=== PATIENT | female | born 1980 | race Hispanic/Latino ===

== ENCOUNTER 2018-07-26 07:03 | Day surgery (SDC) | payer MEDICAID ==
[2018-07-23 11:01] VITALS: BP 124/64
[~2018-07-26] VITALS: Ht 157.5 cm; Wt 72.1 kg
[2018-07-26] VITALS (16 sets, daily range): BP systolic 97–137; BP diastolic 54–72
[~2018-07-26 07:03] MED LIST: CEFOXITIN SODIUM 2 GM VIAL IVP SCH
[2018-07-26] MEDS ORDERED: NEOMY SULF/POLYMYXIN B SULFATE 1 ML AMPUL IR ONE (07:06)
[2018-07-26] MEDS ORDERED: BUPIVACAINE/EPI/PF 0.5% 30ML VIAL IJ ONE (07:06)
[2018-07-26] MEDS ORDERED: LIDOCAINE HCL MDV 0.5% 50ML VIAL IJ ONE (07:06)
[2018-07-26] MEDS ORDERED: LACTATED RINGERS 1000ML 1,000 ML IV ONE (07:48)
[2018-07-26] MEDS ORDERED: SCOPOLAMINE HYDROBROMIDE 1 EACH ADH..PATCH TD ONE (08:55)
[2018-07-26] MEDS ORDERED: METOCLOPRAMIDE 10 MG/2 ML VIAL ONE (08:59)
[2018-07-26] MEDS ORDERED: ONDANSETRON HCL 4 MG/2 ML VIAL ONE (08:59)
[2018-07-26] MEDS ORDERED: LIDOCAINE PF 2% 5ML ABBOJECT ONE (08:59)
[2018-07-26] MEDS ORDERED: MIDAZOLAM HCL 1 MG/ML 2ML VIAL ONE (08:59)
[2018-07-26] MEDS ORDERED: PROPOFOL 10 MG/ML 20ML VIAL IV ONE (08:59)
[2018-07-26] MEDS ORDERED: FENTANYL CITRATE PF 50 MCG/1 ML 2ML VIAL ONE (09:00)
[2018-07-26] MEDS ORDERED: GLYCOPYRROLATE 1 MG/5 ML SYRINGE ONE (09:00)
[2018-07-26] MEDS ORDERED: NEOSTIGMINE 5MG/5ML SYR IV ONE (09:00)
[2018-07-26] MEDS ORDERED: ROCURONIUM 10MG/1ML SYR 10 MG/ML ML ONE (09:00)
[2018-07-26] MEDS ORDERED: LIDOCAINE HCL 4% LTA SOL 4 ML VIAL ONE (09:13)
[2018-07-26] MEDS ORDERED: DEXAMETHASONE SOD PHOSPHATE 4 MG/ML 1ML VIAL ONE (09:13)
[2018-07-26] MEDS ORDERED: MEPERIDINE-PF 25 MG/ML SYG ONE (10:11)
[2018-07-26] MEDS ORDERED: ONDANSETRON HCL MDV 20ML 2 MG/ML VIAL ONE (10:30)
== END 2018-07-26 12:28 | disposition home or self-care (01) ==
LOC: DAH 07:03
PROVIDERS: ATTEND Surgery
DX: K80.10 Calculus of gallbladder with chronic cholecystitis without obstruction (principal); K21.9 Gastro-esophageal reflux disease without esophagitis; E66.9 Obesity, unspecified; Z90.721 Acquired absence of ovaries, unilateral
CPT/HCPCS: 47562; 88304; A4218; A4450; A4510; A4600; A4649 ×4; C1769 ×3; J0694; J1100; J2001; J2175; J2250; J2405; J2704; J2710; J3010; J3490 ×4; J7030; J7120; J2765